=== PATIENT | male | born 1985 | race Caucasian/White ===

== ENCOUNTER 2017-12-20 17:15 | Observation (INO) ==
[~2017-12-20 17:15] MED LIST: Aminoglycoside Consult 1 EACH MC ONE
[2017-12-20] MEDS ORDERED: Isovue-370 500 ML INFUS..BTL IV ONE (18:53)
[2017-12-20] MEDS ORDERED: Piperacillin/Tazobactam 3.375 GM in 0.9 % Sodium Chloride Mini Bag 100 ML IVPB ONE (19:16)
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
[2017-12-20 19:38] LABS: Basophils % 0.3 %; Eosinophils # 0.3 K/mcL (0.0-0.6); Hematocrit 41.2 % (37.5-50.1); Hemoglobin 13.3 g/dL (12.9-16.9); Immature Granulocytes % 0.7 % (0-4); Lymphocytes # 1.7 K/mcL (0.6-4.6); Mean Corpuscular HGB Conc 32.3 g/dL (31.6-35.5); Mean Corpuscular Volume 86.7 fL (83.0-100.0); Mean Platelet Volume 10.8 fL (9.4-12.4); Monocytes # 0.6 K/mcL (0.0-1.3); Monocytes % 6.8 %; Neutrophils # 6.2 K/mcL (1.6-8.9); Platelet Count 257 K/mcL (140-400); Red Blood Count 4.75 M/mcL (4.19-5.50); Red Cell Distribution Width 13.9 % (11.5-14.5); Segmented Neutrophils % 70.2 %
[2017-12-20 19:44] LABS: BUN/Creatinine Ratio 15 (6-26); Blood Urea Nitrogen 8 mg/dL (6-20); Calcium 9.6 mg/dL (8.6-10.3); Carbon Dioxide 27 mEq/L (23-29); Chloride 105 mEq/L (98-107); Glucose 98 mg/dL (70-105); Osmolality,Calculated 288 (280-300); Potassium 3.9 mEq/L (3.5-5.1); Sodium 140 mEq/L (136-145); eGFR For African Americans > 60 (> 60); eGFR For Non-African Americans > 60 (> 60)
--- NOTE | 2017-12-20 20:20 | Emergency Department Note ---
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 Pt stated he hit his left hand on a metal door knob one week ago. The wound was healing with scab well until two days ago. He found a lot of white-yellowish drainage from the wound. He also felt mild increasing pain. No chills and fever. No history of diabetes. Pt has history of paraplegia from neck down with decreasing sensory of hands. history of right hand deformity. Onset (ago): week(s) (1) Location: right, upper extremity Pain Scale: 4 Consistency: constant, Worsening Improves with: nothing - Related Data Home Medications Medication Instructions Recorded Confirmed Ascorbic Acid [Vitamin C] 500 mg PO DAILY 12/20/17 12/20/17 Baclofen [Lioresal] 25 mg PO TID 12/20/17 12/20/17 Gabapentin [Neurontin] 600 mg PO TID 12/20/17 12/20/17 Mv-Mn/FA/Lycopene/Lut/Hb#178 [Damien 1 tab PO DAILY 12/20/17 12/20/17 Multivit For Men Caplet] Allergies Allergy/AdvReac Type Severity Reaction Status Date / Time sulfamethoxazole AdvReac Rash Verified 12/20/17 21:28 [From Bactrim] trimethoprim [From Bactrim] AdvReac Rash Verified 12/20/17 21:28 Constitutional: Denies: fever, chills, weakness, weight change Eyes: Denies: eye pain, eye discharge, vision change ENT ED: Denies: ear pain, throat pain, dental pain, hearing loss, epistaxis, congestion, dysphagia Cardiovascular: Denies: chest pain, palpitations, dyspnea on exertion, edema, syncope Respiratory: Denies: cough, dyspnea, wheezes, hemoptysis, stridor Gastrointestinal: Denies: abdominal pain, nausea, vomiting, diarrhea, constipation, hematemesis, melena, hematochezia Genitourinary: Denies: urgency, dysuria, frequency, hematuria Musculoskeletal: Denies: back pain, neck pain, arthralgia, myalgia Integumentary: Reports: lesions (open wound in right hand). Denies: rash, abrasion Neurological: Denies: headache, weakness, numbness, paresthesias, confusion, abnormal gait, vertigo Psychiatric: Denies: anxiety, depression, suicidal thoughts, homicidal thoughts , auditory hallucinations, visual hallucinations Endocrine: Denies: fatigue Hematological/Lymphatic: Denies: easy bleeding, easy bruising Allergic/Immunologic: Denies: facial swelling, urticaria Past Medical History - Past Medical History Medical history: Reports: other Surgical history: Reports: other Psychiatric history: Reports: no psych history - Social History Smoking Status: Never smoker Smokeless Tobacco Status: No Alcohol use: Reports: occasionally Drug use: Reports: none Physical Exam - General Limitations: no limitations General appearance: alert, in no apparent distress - Head Head exam: atraumatic, normocephalic, normal inspection - Eye Eye exam: Present: normal appearance, PERRL, EOMI - ENT ENT exam: normal exam, normal oropharynx, mucous membranes moist - Neck Neck exam: Present: normal inspection, full ROM, trachea midline - Chest Chest inspection: Present: normal inspection, symmetric chest wall rise. Absent : tenderness - Respiratory Respiratory exam: Present: normal lung sounds bilaterally. Absent: respiratory distress, wheezes - Cardiovascular Cardiovascular exam: Present: regular rate, normal rhythm, normal heart sounds - Abdominal Exam Abdominal exam: Present: soft, Non-Tender. Absent: tenderness, distention, guarding, rebound, rigidity - Extremities Exam Extremities exam: Present: normal inspection (baseline appearance of extremities except a open wound in right hand, see hand exam), full ROM. Absent : tenderness, pedal edema - Expanded Upper Extremity Exam Hand exam: Present: tenderness. Absent: normal inspection (a 2x2 cm open wound on dorsal side metacarpalphalangeal joint, yellowish drainage noted, a small piece of bone visiable, surrounding area erythema, swelling and mild tender to palpation. Diminished sensary on right hand (baseline).), full ROM - Back Exam Back exam: Present: normal inspection, full ROM. Absent: tenderness - Neurological Exam Neurological exam: Present: alert, oriented X3 - Psychiatric Psychiatric exam: Present: normal affect, normal mood - Skin Skin exam: Present: warm, dry, normal color. Absent: intact Course Vital Signs Temperature 98.3 F 12/20/17 17:18 Pulse Rate 77 12/20/17 17:18 Respiratory Rate 16 12/20/17 17:18 Blood Pressure 104/63 12/20/17 17:18 O2 Sat by Pulse Oximetry 96 12/20/17 17:18 Temperature 97.8 F 12/20/17 23:00 Pulse Rate 65 12/20/17 23:00 Respiratory Rate 18 12/20/17 23:00 Blood Pressure 145/78 12/20/17 23:00 O2 Sat by Pulse Oximetry 97 12/20/17 21:09 Oxygen Delivery Oxygen Delivery Room Air Medical Decision Making - MDM Narrative Medical decision making narrative: 32 year old male presents with infected open wound on right hand. a piece of hand bone visible from the wound. labs with normal white cell, xray and hand ct has no osteomylitis. Considering the infected deep wound, IV antibiotics were in ER. Orthopedics consulted. Dr. Almonte will see the patient in the floor tomorrow morning. Pt will be admitted to hospital for IV antibiotics and Ortho consult. - Lab Data Lab results reviewed: Yes I reviewed the patient's lab results. Result diagrams: 12/20/17 19:03 12/20/17 19:03 Lab Results 12/20/17 12/20/17 12/20/17 Range/Units 19:03 19:03 19:52 WBC 8.8 (4.3-11.1) K/mcL RBC 4.75 (4.19-5.50) M/mcL Hgb 13.3 (12.9-16.9) g/dL Hct 41.2 (37.5-50.1) % MCV 86.7 (83.0-100.0) fL MCH 28.0 (28.0-33.3) pg MCHC 32.3 (31.6-35.5) g/dL RDW 13.9 (11.5-14.5) % Plt Count 257 (140-400) K/mcL MPV 10.8 (9.4-12.4) fL Immature Gran % 0.7 (0-4) % Seg Neutrophils % 70.2 % Lymphocytes % 19.0 % Monocytes % 6.8 % Eosinophils % 3.0 % Basophils % 0.3 % Neutrophils # 6.2 (1.6-8.9) K/mcL Lymphocytes # 1.7 (0.6-4.6) K/mcL Monocytes # 0.6 (0.0-1.3) K/mcL Eosinophils # 0.3 (0.0-0.6) K/mcL Basophils # 0.0 (0.0-0.2) K/mcL Sodium 140 (136-145) mEq/L Potassium 3.9 (3.5-5.1) mEq/L Chloride 105 (98-107) mEq/L Carbon Dioxide 27 (23-29) mEq/L BUN 8 (6-20) mg/dL Creatinine 0.53 L (0.70-1.30) mg/dL Est GFR ( Amer) > 60 (> 60) Est GFR (Non-Af Amer) > 60 (> 60) BUN/Creatinine Ratio 15 (6-26) Glucose 98 (70-105) mg/dL Calculated Osmolality 288 (280-300) Lactic Acid 0.7 (0.5-2.2) mmol/L Calcium 9.6 (8.6-10.3) mg/dL - Radiology Data Radiology results reviewed: Yes I reviewed the patient's radiology results.
[2017-12-20] MEDS ORDERED: 0.9 % Sodium Chloride 1,000 ML IVC ONE (23:53)
[2017-12-21] MEDS: Gabapentin 300 MG CAPSULE PO SCH ×3 (00:33→14:21)
[2017-12-21] MEDS: Baclofen 10 MG TABLET PO SCH ×3 (00:33→14:21)
[2017-12-21] MEDS: *HR* Promethazine 25 MG/ML VIAL IVP PRN ×2 (00:34→14:21)
[2017-12-21] MEDS ORDERED: Naloxone 0.4 MG/ML INJ IVP PRN (01:02)
[2017-12-21] MEDS ORDERED: OXYCODONE Oral CONC 10 MG/0.5 ML ORAL.SYG SL PRN (01:02)
--- NOTE | 2017-12-21 01:12 | Internal Med History&Physical ---
Date of Encounter: 12/21/17 Time of Encounter: 23:00 Internal Medicine - H&P: HPI Chief complaint: Cellulitis, right hand with open wound Admitted From: Home Plans for Post Hospital Care: Home History of present illness: Mr. Brown is a 32 year old male Patient states that a few weeks ago he was going down a wheelchair ramp when he could not, and he ran into a door frame with his right hand which resulted in a puncture wound. He did not seek medical attention at that time but tried to take care of himself at home. Over the last few weeks it has been increasing in redness and pain, and he noted some discharge coming out of it after the scab fell off during a shower. He is also noticed a foul odor. Of note, patient has a history of spinal cord injury over 10 years ago resulting in quadriplegia. He uses a wheelchair for transportation, and has no sensation in his lower extremities but some sensation in his right and left hand. He has felt chills but denies fever, he has noticed increased pain as stated previously , and has some nausea but no vomiting. Denies chest pain abdominal pain. In the emergency room and CT showed large open wound along the dorsal soft tissues a second metacarpal joint but no drainable fluid collection. The hand x -ray showed on unified fracture of the third distal phalanx and chronic deformities of the distal radius and ulna. The emergency room started him on vancomycin and Zosyn, and contacted orthopedic surgery to see the patient in the morning. Past Med Surg Social Fam HX - Past Medical History Medical history: other Additional medical history: Spinla cord injury 2004 Psychiatric history: no psych history - Past Surgical History Surgical History: other Additional surgical history: spinal fusion c5-c6; hip flap - Social History Smoking Status: Never smoker Smokeless Tobacco Status: No Alcohol use: occasionally Drug use: none - Family History Mother Living Status: Still Living Hx Family Cancer: Yes (breast) Father Living Status: Hx Family Cardiac Disorders: Yes (HTN) Hx Family Neurologic Disorders: Yes (stroke) Internal Medicine - H&P: Meds Ascorbic Acid [Vitamin C] 500 mg PO DAILY 12/20/17 [History] Baclofen [Lioresal] 25 mg PO TID 12/20/17 [History] Gabapentin [Neurontin] 600 mg PO TID 12/20/17 [History] Mv-Mn/FA/Lycopene/Lut/Hb#178 [Damien Multivit For Men Caplet] 1 tab PO DAILY 12/20 [History] 3 Allergy/AdvReac Type Severity Reaction Status Date / Time sulfamethoxazole AdvReac Rash Verified 12/20/17 21:28 [From Bactrim] trimethoprim [From Bactrim] AdvReac Rash Verified 12/20/17 21:28 All Systems PM: A 10-system review of systems was performed and is negative for pertinent findings except as documented above in the HPI. - Constitutional Vitals: Temp Pulse Resp BP Pulse Ox 97.8 F 65 18 145/78 97 12/20/17 23:00 12/20/17 23:00 12/20/17 23:00 12/20/17 23:00 12/20/17 21:09 General appearance: Present: mild distress, A&O X 3, pleasant - Head Head exam: Present: normal inspection - Eye Eye exam: Present: EOMI, normal appearance - Respiratory Respiratory exam: Present: CTAB. Absent: respiratory distress, rhonchi, wheezes - Cardiovascular Cardiovascular exam: Present: RRR. Absent: diastolic murmur, systolic murmur - GI/Abdominal GI/Abdominal exam: Present: normal bowel sounds. Absent: guarding, tenderness - Extremities Exam Additional comments: Patient is quadriplegic, some sensation of upper extremity. Right hand has large wound with exposed bone over the 2nd digit at MC joint with surrounding erythema. Tender to palpation. Yellow discharge present. - Neurological Exam Neurological exam: Present: motor sensory deficit, oriented X3. Absent: strengths equal and symetr throughout, facial droop, speech deficit Additional comments: Patient is quadriplegic - Skin Skin exam: Present: dry, normal color, warm Additional comments: Please see description of right hand in extremities section. Internal Med - H&P Results - Labs CBC & Chem 7: 12/20/17 19:03 12/20/17 19:03 - Assessment and plan (1) Open wound of right hand Current Visit: Yes Status: Acute Assessment and plan: Secondary to injury with door-frame. Orthopedic surgery will see the patient in the morning. Continue vancomycin and Zosyn. Qualifiers: Qualified Code(s): S61.401A - Unspecified open wound of right hand, initial encounter (2) Hand ulceration Current Visit: Yes Status: Acute Assessment and plan: As evidenced by imaging and physical exam, patient had significant injury after running into a door frame. There is evidence of bone fracture and soft tissue injury. Follow-up orthopedic surgery consult Nothing by mouth overnight Continue vancomycin and Zosyn Follow-up blood cultures. Qualifiers: Non-pressure ulcer stage: unspecified non-pressure ulcer stage Qualified Code(s): L98.499 - Non-pressure chronic ulcer of skin of other sites with unspecified severity (3) Nausea Current Visit: Yes Status: Acute Assessment and plan: Patient states he has nausea because he has not had his home dose of baclofen which helps prevent stomach spasms. Home meds given prior to midnight Continue home meds after surgery evaluation. Patient nothing by mouth after midnight. - Time Spent With Patient Total time spent is greater than 50% in coordination of care (as documented) at patient's floor/unit and/or counseling patient: Greater than 35 minutes
[2017-12-21 06:21] LABS: Bilirubin,Urine Negative (Negative); Blood,Urine Small (Negative); Clarity,Urine Cloudy (Clear); Color,Urine Yellow (Yellow); Glucose,Urine (UA) Normal (Normal); Ketones,Urine 15 mg/dL (Negative); Leukocyte Esterase,Urine Large (Negative); Nitrite,Urine Positive (Negative); Protein,Urine 30 mg/dL (Neg-Trace); Specific Gravity,Urine > 1.030 (1.010-1.025); Urobilinogen,Urine Normal (Normal)
[2017-12-21 06:24] LABS: Hyaline Casts,Urine Moderate per lpf (None-Few); Squamous Epithelial Cell,Urine None Seen per lpf (None-Few); WBC,Urine TNTC per hpf (0-3)
[2017-12-21 06:33] LABS: Bacteria,Urine Few per hpf (None-Few); Mucus,Urine Few (Few)
[2017-12-21 07:11] LABS: Hematocrit 38.6 % (37.5-50.1); Hemoglobin 12.6 g/dL (12.9-16.9); Mean Corpuscular HGB Conc 32.6 g/dL (31.6-35.5); Mean Corpuscular Hemoglobin 28.1 pg (28.0-33.3); Mean Platelet Volume 10.8 fL (9.4-12.4); Platelet Count 234 K/mcL (140-400); Red Blood Count 4.49 M/mcL (4.19-5.50); Red Cell Distribution Width 13.9 % (11.5-14.5)
[2017-12-21 07:33] LABS: BUN/Creatinine Ratio 12 (6-26); Blood Urea Nitrogen 6 mg/dL (6-20); Calcium 8.9 mg/dL (8.6-10.3); Carbon Dioxide 26 mEq/L (23-29); Chloride 108 mEq/L (98-107); Glucose 86 mg/dL (70-105); Osmolality,Calculated 289 (280-300); Potassium 3.7 mEq/L (3.5-5.1); Sodium 141 mEq/L (136-145); eGFR For African Americans > 60 (> 60); eGFR For Non-African Americans > 60 (> 60)
--- NOTE | 2017-12-21 07:36 | Orthopedic Consult Note ---
Date of Encounter: 12/21/17 Time of Encounter: 07:33 Assessment and Plan (1) Hand ulceration Current Visit: Yes Status: Acute At this point the patient does have a wound ulcer from a prior injury with likely colonization possible infection. My recommendation is for antibiotics per the primary team and local wound care. There does not appear to be any drainable abscess. Wound care recommendations at this point is daily wet-to- dry dressing changes. Motion exercises to reduce the risk of stiffness. I suspect that this will heal through secondary intention I did indicate the possible need for skin grafting. I will follow him with you clinically. Qualifiers: Non-pressure ulcer stage: unspecified non-pressure ulcer stage Qualified Code(s): L98.499 - Non-pressure chronic ulcer of skin of other sites with unspecified severity History of Present Illness HPI: Mr. Brown is a 32 year old male. He has a history of a spinal cord injury back in 2003 leaving him reliant on a wheelchair for mobilization as well as significant upper extremity deficits. He was going down a ramp about 3 weeks ago when he sustained an injury to his right hand, particularly along the dorsal index metacarpophalangeal joint region where he sustained a puncture wound. He said that this eventually became infected and after playing office He noted drainage and presented to the emergency department. He is admitted to the hospitalist and I was asked to evaluate the patient for definitive management of the right hand. Pain is only mild localized along the dorsal index metacarpophalangeal joint region. No feelings of illness. No new numbness, tingling, or any other associated signs or symptoms. No modifying factors. Past Med Surg Social Fam HX - Past Medical History Medical history: other Additional medical history: Spinla cord injury 2003 Psychiatric history: no psych history - Past Surgical History Surgical History: other Additional surgical history: spinal fusion c5-c6; hip flap - Social History Smoking Status: Never smoker Smokeless Tobacco Status: No Alcohol use: occasionally Drug use: none - Family History Mother Living Status: Still Living Hx Family Cancer: Yes (breast) Father Living Status: Hx Family Cardiac Disorders: Yes (HTN) Hx Family Neurologic Disorders: Yes (stroke) Medications and Allergies Ascorbic Acid [Vitamin C] 500 mg PO DAILY 12/20/17 [History] Baclofen [Lioresal] 25 mg PO TID 12/20/17 [History] Gabapentin [Neurontin] 600 mg PO TID 12/20/17 [History] Mv-Mn/FA/Lycopene/Lut/Hb#178 [Damien Multivit For Men Caplet] 1 tab PO DAILY 12/20 [History] 3 Allergy/AdvReac Type Severity Reaction Status Date / Time sulfamethoxazole AdvReac Rash Verified 12/20/17 21:28 [From Bactrim] trimethoprim [From Bactrim] AdvReac Rash Verified 12/20/17 21:28 All Systems Reviewed: Constitutional and musculoskeletal systems were reviewed and are negative unless otherwise stated in history of present illness. Physical Exam - Constitutional Vitals: Temp Pulse Resp BP Pulse Ox 97.8 F 65 18 145/78 97 12/20/17 23:00 12/20/17 23:00 12/20/17 23:00 12/20/17 23:00 12/20/17 21:09 CONSTITUTIONAL -Vitals reviewed -The patient is well developed, well nourished, well groomed PSYCHIATRIC -Fully alert and oriented -Pleasant mood RIGHT UPPER EXTREMITY Inspection of the hand shows moderate spasticity from a prior spinal cord injury with wrist and digital flexion. There is a quarter-sized ulceration over the dorsal and radial area of the index metacarpophalangeal joint which is full-thickness in nature and mild surrounding erythema. No significant drainage. At the base of the ulcer I do see a small part of the extensor tendon which appears to be covered with peritenon. I can gently passively range the metacarpophalangeal joint without significant pain. He grossly flexes and extends the digits with limitations due to the spinal cord injury as well as spasticity. Of incidental note he does have a long finger constriction band around the distal phalangeal region. He does have an absent small finger through the midportion with areas of contusion but no appearance of infection. The fingertips are well perfused. Diagnostic Imaging: I did personally review and interpret the CT scan of the right hand which demonstrates the soft tissue ulceration however no signs of osteomyelitis. Results - Labs Result Diagrams: 12/21/17 07:00 12/20/17 19:03 Labs: Abnormal lab results Hgb 12.6 g/dL (12.9-16.9) L 12/21/17 07:00 Creatinine 0.53 mg/dL (0.70-1.30) L 12/20/17 19:03 Ur Specimen Adequacy See below A 12/21/17 06:10 Urine Clarity Cloudy (Clear) A 12/21/17 06:10 Ur Specific [place] > 1.030 (1.010-1.025) H 12/21/17 06:10 Urine Protein 30 mg/dL (Neg-Trace) H 12/21/17 06:10 Urine Ketones 15 mg/dL (Negative) H 12/21/17 06:10 Urine Blood Small (Negative) H 12/21/17 06:10 Urine Nitrite Positive (Negative) A 12/21/17 06:10 Ur Leukocyte Esterase Large (Negative) H 12/21/17 06:10 Urine Microscopic RBC 3-5 per hpf (0-3) H 12/21/17 06:10 Urine Microscopic WBC TNTC per hpf (0-3) H 12/21/17 06:10 Hyaline Casts Moderate per lpf (None-Few) H 12/21/17 06:10 Ur Culture Indicated? YES (NO) A 12/21/17 06:10 H & H 12/21/17 Range/Units 07:00 Hgb 12.6 L (12.9-16.9) g/dL Hct 38.6 (37.5-50.1) % All other labs normal. Consult Discharge Plan - Plan Referrals: Zahida Mccall, [employer] [Primary Care Provider] -
[2017-12-21] MEDS ORDERED: Piperacillin/Tazobactam 3.375 GM in 0.9 % Sodium Chloride Mini Bag 100 ML IVPB SCH (08:00)
--- NOTE | 2017-12-21 09:45 | Discharge Summary ---
- NOTES TO OUTPATIENT PROVIDER Notes to Outpatient Provider: admitted to R hand puncture wound, no debridement done. Will follow up with ortho as an outpatient. Discharged with augmentin and levaquin for MRSA + pseudomonal coverage Orders not resulted at time of discharge: Pending orders 12/21/17 06:10 Culture,Urine [RM] Routine Date of Encounter: 12/21/17 Time of Encounter: 08:40 - Discharge Diagnosis (1) Hand ulceration Priority: Secondary Status: Acute Qualifiers: Non-pressure ulcer stage: unspecified non-pressure ulcer stage Qualified Code(s): L98.499 - Non-pressure chronic ulcer of skin of other sites with unspecified severity (2) Open wound of right hand Priority: Primary Status: Acute Qualifiers: Qualified Code(s): S61.401A - Unspecified open wound of right hand, initial encounter Hospital course: Mr. 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 He ran into a door frame while maneuvering his wheelchair and got his R hand caught between the wheelchair and door frame a few weeks prior to the presentation.. He did not seek medical attention at that time but tried to take care of himself at home but had worsening redness and discharge. CT did not show any evidence of OM and orthopedic surgery evaluated the pt and deemed that he does not need any surgical intervention. He was given IV vanc/zosyn inpatient which was converted to augmentin/levaquin for MRSA/pseudomonal coverage. He is discharged in stable condition with a follow up appt with orthopedics early next week. Discharge discussed with: patient - Time Spent with Patient Total time spent providing and/or coordinating discharge services: Greater than 30 minutes - Discharge Medications Prescriptions: Amoxicillin/Clavulanate [Augmentin] 875 mg PO BIDWM 6 Days #12 tablet levoFLOXacin [Levaquin] 500 mg PO DAILY 6 Days #6 tablet Home Medications: Ascorbic Acid [Vitamin C] 500 mg PO DAILY 12/20/17 [History] Baclofen [Lioresal] 25 mg PO TID 12/20/17 [History] Gabapentin [Neurontin] 600 mg PO TID 12/20/17 [History] Mv-Mn/FA/Lycopene/Lut/Hb#178 [Damien Multivit For Men Caplet] 1 tab PO DAILY 12/20 [History] Amoxicillin/Clavulanate [Augmentin] 875 mg PO BIDWM 6 Days #12 tablet 12/21/17 [ Rx] levoFLOXacin [Levaquin] 500 mg PO DAILY 6 Days #6 tablet 12/21/17 [Rx] Allergies/Adverse Reactions: 3 Allergy/AdvReac Type Severity Reaction Status Date / Time sulfamethoxazole AdvReac Rash Verified 12/20/17 21:28 [From Bactrim] trimethoprim [From Bactrim] AdvReac Rash Verified 12/20/17 21:28 Date of admission: 12/20/17 22:15 Primary care physician: Zahida Mccall CNP - Constitutional Vitals: Temp Pulse Resp BP Pulse Ox 98.1 F 82 14 117/75 95 12/21/17 07:57 12/21/17 07:57 12/21/17 07:57 12/21/17 07:57 12/21/17 07:57 General appearance: Present: mild distress, A&O X 3, pleasant Exam: General: Alert and oriented HEENT:EOM, pupils equal, round, and reactive. Cardiovascular:Normal S1 & S2, no murmurs or gallops. No JVD. Pulse regular. Lungs:Normal breath sounds, no wheezes or crackles. Abdomen:Soft, non-tender, no rigidity. Extremities:Right hand has large wound with surrounding erythema. Tender to palpation. Neurological:Normal cognition and motor skills. Skin:Normal color, no rash, no lesions. Pulses:Carotid and radial pulses normal +2. Rest of the physical exam is non-contributory - Patient Status Disposition: Home, Self-Care Condition: Fair Overall status at discharge: patient is progressing back to baseline - Discharge Instructions Follow Up With: Zahida Mccall CNP [Primary Care Provider] - Lawrence Almonte MD [Partnered Physician] - Additional Instructions: Follow up with orthopedics in 1 week - Diet and Activity Activity: resume usual activities as tolerated Diet: regular diet
--- NOTE | 2017-12-21 12:15 | Physician Discharge Referral ---
- Diagnosis (1) Hand ulceration Status: Acute (2) Open wound of right hand Status: Acute - Respiratory Orders Smoking Cessation: Smoking cessation has been advised. For more information, call the [place] Tobacco Quit Line at 7-569-WMWK-NOW. - Services Needed Following services are medically necessary services: Nursing, Home Health Aide - Transfer Medications Prescriptions: Amoxicillin/Clavulanate [Augmentin] 875 mg PO BIDWM 6 Days #12 tablet levoFLOXacin [Levaquin] 500 mg PO DAILY 6 Days #6 tablet Home Medications: Ascorbic Acid [Vitamin C] 500 mg PO DAILY 12/20/17 [History] Baclofen [Lioresal] 25 mg PO TID 12/20/17 [History] Gabapentin [Neurontin] 600 mg PO TID 12/20/17 [History] Mv-Mn/FA/Lycopene/Lut/Hb#178 [Damien Multivit For Men Caplet] 1 tab PO DAILY 12/20 [History] Amoxicillin/Clavulanate [Augmentin] 875 mg PO BIDWM 6 Days #12 tablet 12/21/17 [ Rx] levoFLOXacin [Levaquin] 500 mg PO DAILY 6 Days #6 tablet 12/21/17 [Rx] Allergies/Adverse Reactions: 3 Allergy/AdvReac Type Severity Reaction Status Date / Time sulfamethoxazole AdvReac Rash Verified 12/20/17 21:28 [From Bactrim] trimethoprim [From Bactrim] AdvReac Rash Verified 12/20/17 21:28 Certification: Further, I certify that my clinical findings support that this patient is homebound (i.e. absences from home require considerable and taxing effort and are for medical reasons or advent services or infrequently or short duration when for other reasons) because: Homebound Reason: Patient requires assistance of a person or device to safely leave home Attestation: My signature below is to certify that this patient is under my care and that I, or nurse practitioner, or a physician's patient care assistant working with me, has a face-to -face encounter with this patient.
[2017-12-21 14:18] VITALS: BP 117/74
== END 2017-12-21 16:46 | disposition home or self-care (01) ==
LOC: EMEROO 17:15 → 3ANU 17:15 → SUATTDRO 22:15 → 3ANU 22:28
PROVIDERS: ADMIT Pediatrics; ATTEND Internal Medicine

== ENCOUNTER 2018-01-03 11:18 | Inpatient (IN) ==
[2018-01-03] MEDS ORDERED: *HR* FentaNYL (PF) 100 MCG/2 ML VIAL IVP ONE ×3 (11:23→16:54)
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
[2018-01-03] MEDS ORDERED: *HR* FentaNYL (PF) 100 MCG/2 ML VIAL ONE (12:44)
[2018-01-03] MEDS ORDERED: Naloxone 0.4 MG/ML INJ IVP PRN (13:29)
[2018-01-03] MEDS ORDERED: *HR* OxyCODONE/APAP 7.5/325 TABLET PO PRN (13:39)
--- NOTE | 2018-01-03 13:39 | Orthopedic Consult Note ---
Date of Encounter: 01/04/18 Time of Encounter: 13:00 Assessment and Plan (1) Femur fracture, right Current Visit: Yes Status: Acute right midshaft femur fracture - Due to patient's paraplegia it was discussed with him the option of surgical fixation versus conservative treatment in long leg cast for at least 6 weeks. Discussed the procedure as well as r/b/a of each option. Patient ultimately chose to proceed with surgery. He is scheduled for right femur intramedullary nailing tomorrow by Dr. Leal. All questions answered and consent obtained, copy placed in chart and given to internet programmer. Continue in traction until surgery. Continue NWB. Apply ice and elevate as needed. Pain control per hospitalist. Ok for clears for breakfast in the am but then NPO after that. Qualifiers: Encounter type: initial encounter Femur location: shaft Fracture type: closed Fracture morphology: other fracture Qualified Code(s): S72.391A - Other fracture of shaft of right femur, initial encounter for closed fracture History of Present Illness Chief complaint: right leg pain HPI: Mr. Brown is a 32 year old male with history of paraplegia (since 2003) who presented to the ER with left leg pain/deformity. He was doing home therapy when the therapist crossed his right ankle overtop left knee for stretch patient heard a snap and sudden obvious deformity and pain to right thigh. He does have some sensation to lower extremity and can feel pain although well controlled right now with medication. He states EMS was able to apply traction to the leg and his pain improved after that and they were able to obtain better perfusion to the distal extremity. He denies pain anywhere else. He is typically wheelchair bound but recently obtained a standing walker which he has been trying to use for the past couple months and he would like to get back to using this as soon as possible. Past Med Surg Social Fam HX - Past Medical History Medical history: other Additional medical history: Spinla cord injury 2004 Psychiatric history: no psych history - Past Surgical History Surgical History: other Additional surgical history: spinal fusion c5-c6; hip flap - Social History Smoking Status: Never smoker Smokeless Tobacco Status: No Alcohol use: occasionally Drug use: none - Family History Mother Living Status: Still Living Hx Family Cancer: Yes (breast) Father Living Status: Hx Family Cardiac Disorders: Yes (HTN) Hx Family Neurologic Disorders: Yes (stroke) Medications and Allergies Ascorbic Acid [Vitamin C] 500 mg PO DAILY 12/20/17 [History] Baclofen [Lioresal] 25 mg PO TID 12/20/17 [History] Gabapentin [Neurontin] 600 mg PO TID 12/20/17 [History] Mv-Mn/FA/Lycopene/Lut/Hb#178 [Damien Multivit For Men Caplet] 1 tab PO DAILY 12/20 [History] 3 Allergy/AdvReac Type Severity Reaction Status Date / Time sulfamethoxazole AdvReac Rash Verified 12/20/17 21:28 [From Bactrim] trimethoprim [From Bactrim] AdvReac Rash Verified 12/20/17 21:28 All Systems Reviewed: The remainder of the systems were reviewed and are negative - Constitutional Constitutional: as per HPI - Musculoskeletal Musculoskeletal: as per HPI Physical Exam - Constitutional Vitals: Temp Pulse Resp BP Pulse Ox 98.1 F 78 16 138/98 97 01/03/18 11:23 01/03/18 11:23 01/03/18 11:23 01/03/18 11:23 01/03/18 11:23 - Knee right Appearance: other (traction in place to right lower extremity, mild swelling noted to mid thigh, compartments soft. ROM restricted secondary to paraplegia, brisk cap refill. distal pedal pulse noted) Results - Labs Result Diagrams: 01/04/18 01:18 01/04/18 01:18 Labs: All other labs normal. - Diagnostic results Knee x-ray: report reviewed, image reviewed Consult Discharge Plan - Plan Referrals: Zahida Mccall FARM MECHANIC APPRENTICE [Primary Care Provider] - - Attending Attestation Case and plan of care discussed with supervising physician who was available for all aspects of care.
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
[2018-01-03] MEDS: Gabapentin 300 MG CAPSULE PO SCH ×2 (14:13→20:42)
[2018-01-03] MEDS: Baclofen 10 MG TABLET PO SCH ×2 (14:40→20:42)
[2018-01-03] MEDS: *HR* OxyCODONE/APAP 7.5/325 TABLET PO PRN ×2 (18:32→23:33)
[2018-01-03] MEDS ORDERED: Ondansetron 4 MG/2 ML VIAL IVP PRN (20:38)
[2018-01-03] MEDS: Ketorolac 30 MG/ML VIAL IVP PRN (21:16)
[2018-01-04 01:50] LABS: Basophils % 0.2 %; Eosinophils # 0.2 K/mcL (0.0-0.6); Eosinophils % 1.8 %; Hematocrit 39.3 % (37.5-50.1); Immature Granulocytes % 0.4 % (0-4); Lymphocytes # 1.4 K/mcL (0.6-4.6); Lymphocytes % 12.9 %; Mean Corpuscular HGB Conc 33.1 g/dL (31.6-35.5); Mean Corpuscular Hemoglobin 28.4 pg (28.0-33.3); Mean Corpuscular Volume 85.8 fL (83.0-100.0); Mean Platelet Volume 11.1 fL (9.4-12.4); Monocytes # 0.7 K/mcL (0.0-1.3); Neutrophils # 8.2 K/mcL (1.6-8.9); Platelet Count 210 K/mcL (140-400); Red Blood Count 4.58 M/mcL (4.19-5.50); Red Cell Distribution Width 14.2 % (11.5-14.5); Segmented Neutrophils % 77.7 %
[2018-01-04 02:04] LABS: BUN/Creatinine Ratio 16 (6-26); Blood Urea Nitrogen 11 mg/dL (6-20); Calcium 9.3 mg/dL (8.6-10.3); Carbon Dioxide 28 mEq/L (23-29); Chloride 103 mEq/L (98-107); Chol/HDL Ratio 3.8 (0-4.9); Cholesterol 121 mg/dL (< 200); Glucose 135 mg/dL (70-105); HDL Cholesterol 32 mg/dL (40-59); LDL Cholesterol,Calculated 72 mg/dL (0-99); Osmolality,Calculated 285 (280-300); Potassium 4.1 mEq/L (3.5-5.1); Sodium 137 mEq/L (136-145); Triglycerides 84 mg/dL (< 150); eGFR For Non-African Americans > 60 (> 60)
[2018-01-04] MEDS: *HR* OxyCODONE/APAP 7.5/325 TABLET PO PRN ×4 (04:23→23:39)
[2018-01-04] MEDS: Gabapentin 300 MG CAPSULE PO SCH ×3 (08:24→21:33)
[2018-01-04] MEDS: Baclofen 10 MG TABLET PO SCH ×3 (08:24→21:32)
[2018-01-04] MEDS ORDERED: Ascorbic Acid 500 MG TABLET PO SCH (09:00)
[2018-01-04] MEDS ORDERED: Multivit/Ca/Min/Fe/FA 1 TAB TABLET PO SCH (09:00)
[2018-01-04] MEDS: Ketorolac 30 MG/ML VIAL IVP PRN (12:29)
--- NOTE | 2018-01-04 13:17 | Anesthesia Evaluation PreOp ---
Date of Encounter: 01/04/18 Time of Encounter: 13:15 - Past History Planned Operation: IM Nailing Hip Right Cardiac History: Denies any Significant Hx Pulmonary History: Denies Any Significant HX CATHODE BUILDER History: Other (Quadraphlegic C5-6 Fusion) Other Medical History: Denies Any Significant HX Anesthesia History: No Prior Anesthetic Complications Alcohol Use: occasionally Drug use: none Medications and Allergies Ascorbic Acid [Vitamin C] 500 mg PO DAILY 12/20/17 [History] Baclofen [Lioresal] 25 mg PO TID 12/20/17 [History] Gabapentin [Neurontin] 600 mg PO TID 12/20/17 [History] Mv-Mn/FA/Lycopene/Lut/Hb#178 [Damien Multivit For Men Caplet] 1 tab PO DAILY 12/20 [History] 3 Allergy/AdvReac Type Severity Reaction Status Date / Time sulfamethoxazole AdvReac Rash Verified 12/20/17 21:28 [From Bactrim] trimethoprim [From Bactrim] AdvReac Rash Verified 12/20/17 21:28 - Meds/Allergy Pre-op Review Medications Reviewed: Yes Allergies Reviewed: Yes Beta Blockers on Current Med List: No Anesthesia Results - Labs 01/04/18 01:18 01/04/18 01:18 Laboratory Tests 01/04/18 01/04/18 01:18 01:18 Hgb 13.0 Hct 39.3 Plt Count 210 Sodium 137 Potassium 4.1 BUN 11 Creatinine 0.68 L Anesthesia Exam Vital Signs/O2 Sat/Glucose, Most Current Temp Pulse Resp BP Pulse Ox 01/04/18 12:21 98.2 F 88 17 109/66 92 Height: 6'4 Weight: 230 lbs NPO (# of Hours): MN Pain Scale: 0 - HEENT Pupil (Motor): Pupils equal, EOMI Mallampati: II Teeth: Normal Oral Opening: Greater than 3 - CATHODE BUILDER LOC: Oriented CATHODE BUILDER Motor: Normal Face, Deficit RUE (Quadraphlegia), Deficit LUE, Deficit RLE, Deficit LLE CATHODE BUILDER Sensory: Normal: Face, Deficit: RUE, LUE, RLE, LLE - Cardiac Rhythm: Regular Murmur: None JVD: No Carotid Bruit: No - Pulmonary Breath Sounds: bilateral Clear Respiratory Effort: Symmetrical Anesthesia Assess/Plan ASA Score: 3 (Quadraphlegic) Modified Vasquez Scale for Level of Consciousness: Cooperative, oriented, and tranquil Anesthetic Plan: General Monitoring Plan: Standard Monitors Recovery Plan: PACU (Discussed GA, agrees to proceed)
[2018-01-04] MEDS ORDERED: Acetaminophen IV 1,000 MG/100 ML INFUS..BTL ONE (13:22)
[2018-01-04] MEDS ORDERED: Famotidine 20 MG/2 ML VIAL ONE (13:22)
[2018-01-04] MEDS ORDERED: *HR* HYDROmorphone 2 MG TABLET PO PRN (15:00)
[2018-01-04] MEDS ORDERED: *HR* Promethazine 25 MG/ML VIAL IVP PRN (15:00)
[2018-01-04] MEDS ORDERED: *HR* OxyCODONE Immed Rel 5 MG TABLET PO PRN (15:00)
--- NOTE | 2018-01-04 15:13 | Orthopedic Operative Note ---
Date of procedure: 01/04/18 Pre-op diagnosis: Displaced midshaft right femoral shaft fracture Post-op diagnosis: same Procedure: Procedure: Right femur open reduction intramedullary nail fixation Estimated blood loss: 100 cc Hardware: Metal: Synthes TFN 11 mm diameter, 420 mm, 90 mm helical blade, 42 mm distal locking bolt Procedural Notes: Patient is quadriplegic with a flexion contracture of the right knee Operative procedure: The patient was brought to the operating room and placed on the operating room table. After general anesthesia was administered the well leg was place in the well leg martinez and the operative leg was placed in the fracture leg martinez. All pressure points were padded appropriately. The operative extremity was prepped and draped in the sterile surgical fashion patient received IV antibiotic prior to skin incision. A standard direct lateral approach was made over the entry point of the greater trochanter, the incision was made through the skin and subcutaneous tissue hemostasis was obtained with Bovie cautery. Using careful sharp dissection the fascia was identified and incised, flouroscopic assistance was used to identify the entry point. The guidepin was placed at the entry point using fluroscopic assistance, it was over reamed with the proximal reamer. The nail was placed through the entry hole, across the fracture site into the distal fragment the position was confirmed with fluroscopy. A guide pin was placed through the proximal locking guide from the lateral femur through the nail into the femoral head, it was over reamed with the reamer. The 90 mm helical blade was placed over the guide pin through the nail into the femoral head, locked in place with the proximal locking bolt. Distal locking bolt was placed under fluoroscopic assistance. The position of hardware and fracture reduction found to be acceptable with fluroscopic assistance. The wound was irrigated. Fascia was closed with a running #2 PDS suture. The deep tissue was irrigated and closed deep with #1 PDS suture superficially with 0 PDS suture and skin was closed with Dermabond. The patient was placed in a sterile dressing The patient was extubated and transferred to the recovery room in stable condition. Anesthesia: GETA Surgeon: Faustino Briggs Was there an phys assistant present: No Estimated blood loss (cc): 100 Condition: stable Disposition: PACU
--- NOTE | 2018-01-04 16:13 | Anesthesia Evaluation Post Op ---
Date of Encounter: 01/04/18 Time of Encounter: 16:15 - Vital Signs Vital Signs: Vital Signs/O2 Sat/Glucose, Most Current Temp Pulse Resp BP Pulse Ox 01/04/18 16:08 98.3 F 85 12 98/61 95 01/04/18 15:58 82 16 106/72 96 01/04/18 15:48 83 12 122/81 95 01/04/18 15:38 99 F 102 16 132/91 95 01/04/18 12:21 98.2 F 88 17 109/66 92 - Lungs Lungs: Clear Ascult./Percussion - Airway Airway: Non-obstructed - Cardiovascular Regular Rate - Mental Status Mental Status: Alert & Oriented, Answers Appropriately - Pain Pain Scale: 0 - Nausea Vomiting Nausea Vomiting: Not Present - Hydration Hydration: Ice chips - Discharge PostOp Status: Transfer Patient to floor
[2018-01-04] MEDS ORDERED: Naloxone 0.4 MG/ML INJ IVP PRN (16:17)
[2018-01-04] MEDS ORDERED: Ondansetron 4 MG/2 ML VIAL IVP PRN (16:17)
[2018-01-04 16:34] LABS: Hematocrit 38.8 % (37.5-50.1); Hemoglobin 12.7 g/dL (12.9-16.9)
--- NOTE | 2018-01-04 16:38 | Internal Med Progress Note ---
Date of Encounter: 01/04/18 Time of Encounter: 16:36 - Assessment and plan (1) Femur fracture, right Current Visit: Yes Status: Acute Assessment and plan: Patient had fracture of his right femur due to physical therapy -Status Post right femur open reduction and intramedullary nail fixation postop day #0 -Analgesia -Physical therapy Qualifiers: Encounter type: initial encounter Femur location: shaft Fracture type: closed Fracture morphology: other fracture Qualified Code(s): S72.391A - Other fracture of shaft of right femur, initial encounter for closed fracture (2) Quadriplegia following spinal cord injury Current Visit: Yes Status: Acute Assessment and plan: Patient is quadriplegic since 2003 after an incident -Continue physical therapy -Patient utilizes home health care - Time Spent With Patient Total time spent is greater than 50% in coordination of care (as documented) at patient's floor/unit and/or counseling patient: less than 15 minutes - Subjective Interval history: Patient seen and examined at bedside. Patient just returned from surgery. Patient states that he is comfortable with just minimal discomfort in his right hip. Patient denies any chest pain, shortness breath, abdominal pain, nausea, vomiting, diarrhea. Patient states that he understands that he is not some spirometer. - Constitutional Vitals: Temp Pulse Resp BP Pulse Ox 98.3 F 85 12 98/61 95 01/04/18 16:08 01/04/18 16:08 01/04/18 16:08 01/04/18 16:08 01/04/18 16:08 General appearance: Present: A&O X 3, answers questions appropriately Exam: Constitutional: No acute distress, Alert Psych: AAO x 3 HEENT: NCAT, EOMI Neck: supple, no JVD, old tracheostomy scar Cardio: regular rate and rhythm, +s1s2, no murmurs/rubs/ronchi, no lower extremity edema, no JVD Resp: clear to ascultation bilaterally, no wheezes/rales/ronchi Abd: soft, non tender/non distended, positive bowel sounds, no gaurding/reboud/ ridgitity Extremities: Right lower extremity incision is clean dry and intact with dressing in place. No obvious hematoma. Neuro: Patient with quadriplegia which is chronic Lymph: no cervical/supraclavicular adenopahty apprecitated Internal Medicine: Result - Labs CBC & Chem 7: 01/04/18 01:18 01/04/18 01:18 Labs: Short CBC 01/04/18 Range/Units 01:18 WBC 10.5 (4.3-11.1) K/mcL Hgb 13.0 (12.9-16.9) g/dL Hct 39.3 (37.5-50.1) % Plt Count 210 (140-400) K/mcL Neutrophils # 8.2 (1.6-8.9) K/mcL BMP 01/04/18 01:18 Sodium 137 Potassium 4.1 Chloride 103 Carbon Dioxide 28 BUN 11 Creatinine 0.68 L Glucose 135 H Calcium 9.3 - Impressions Impressions Femur X-Ray 01/04/18 14:32 IMPRESSION: Intraprocedural fluoroscopic spot images as above. See separate procedure report for more information. D/ : / 01/04/2018 15:29:17 Prabhakar Downey MD / brown Interpreting Provider: Prabhakar Downey MD Fluoroscopy 01/04/18 14:32 IMPRESSION: Intraprocedural fluoroscopic spot images as above. See separate procedure report for more information. D/ / 01/04/2018 15:29:17 Prabhakar Downey MD / brown Interpreting Provider: Prabhakar Downey MD Femur X-Ray 01/04/18 15:13 IMPRESSION: Intraprocedural fluoroscopic spot images as above. See separate procedure report for more information. D/ / 01/04/2018 15:29:17 Prabhakar Downey MD / brown Interpreting Provider: Prabhakar Downey MD Consult Discharge Plan - Plan Referrals: Zahida Mccall, ROBBIE [Primary Care Provider] -
[2018-01-04] MEDS ORDERED: Ketorolac 30 MG/ML VIAL IVP PRN (20:21)
[2018-01-05 01:41] LABS: Hematocrit 37.6 % (37.5-50.1); Hemoglobin 12.1 g/dL (12.9-16.9)
[2018-01-05] MEDS: *HR* OxyCODONE/APAP 7.5/325 TABLET PO PRN ×3 (04:20→13:16)
--- NOTE | 2018-01-05 08:05 | Orthopedics Progress Note ---
Date of Encounter: 01/05/18 Time of Encounter: 08:04 Subjective Interval history: Patient was seen this morning doing well without complaints. Afebrile vital signs stable. Operative extremity: Dressing clean dry and intact Complains of left knee pain we will get x-rays of left knee. Assessment and plan: Continue with postoperative care stable for discharge Objective Vital signs: Vital Signs Temp Pulse Resp BP Pulse Ox 01/05/18 07:04 98.0 F 87 14 114/71 97 01/05/18 03:29 97.8 F 87 16 118/81 95 01/05/18 00:04 98.0 F 97 16 118/79 96 01/04/18 21:53 95 01/04/18 18:50 99.0 F 84 14 116/63 95 01/04/18 17:50 97.0 F L 79 14 114/76 95 01/04/18 17:20 97.0 F L 78 16 93/63 96 01/04/18 16:50 96.9 F L 76 16 96/60 97 01/04/18 16:08 98.3 F 85 12 98/61 95 01/04/18 15:58 82 16 106/72 96 01/04/18 15:48 83 12 122/81 95 01/04/18 15:38 99 F 102 16 132/91 95 01/04/18 12:21 98.2 F 88 17 109/66 92 Intake and Output 01/04/18 01/05/18 01/05/18 23:59 07:59 15:59 Intake Total 950 / 950 550 / 550 Output Total 200 / 200 200 / 200 Balance 750 / 750 350 / 350 Intake: IV Fluids 100 / 100 100 / 100 Ancef 2,000 MG In 0.9 % Sodium 100 / 100 100 / 100 Chloride 100 ML @ 200 mls/hr IVPB Q8H [facility] Rx#:[id number] Oral 850 / 850 450 / 450 Output: Urine 200 / 200 Catheter 200 / 200 Other: Stool Size Smear Stool Consistency loose liquid Stool Color Brown # Bowel Movements 1 - Labs CBC & BMP: 01/05/18 01:17 01/04/18 01:18 Labs: Abnormal lab results Hgb 12.1 g/dL (12.9-16.9) L 01/05/18 01:17 Creatinine 0.68 mg/dL (0.70-1.30) L 01/04/18 01:18 Glucose 135 mg/dL (70-105) H 01/04/18 01:18 HDL Cholesterol 32 mg/dL (40-59) L 01/04/18 01:18 - VTE Documentation of Mechanical Device: Venous foot pump, device Consult Discharge Plan - Plan Referrals: Zahida Mccall, DERMATOLOGY NURSE PRACTITIONER [Primary Care Provider] -
[2018-01-05] MEDS: Baclofen 10 MG TABLET PO SCH ×2 (08:47→14:56)
[2018-01-05] MEDS: Gabapentin 300 MG CAPSULE PO SCH ×2 (08:47→14:56)
[2018-01-05] MEDS ORDERED: Ascorbic Acid 500 MG TABLET PO SCH (09:00)
[2018-01-05] MEDS ORDERED: Multivit/Ca/Min/Fe/FA 1 TAB TABLET PO SCH (09:00)
--- NOTE | 2018-01-05 09:55 | Discharge Summary ---
Orders not resulted at time of discharge: Pending orders 01/05/18 06:39 XR knee LT limited 1-2V [XR] Routine 01/06/18 04:00 Hemoglobin and Hematocrit [HEME] AM 0400 Date of Encounter: 01/05/18 Time of Encounter: 09:52 - Discharge Diagnosis (1) Femur fracture, right Priority: Primary (4) Status: Acute Qualifiers: Encounter type: initial encounter Femur location: shaft Fracture type: closed Fracture morphology: other fracture Qualified Code(s): S72.391A - Other fracture of shaft of right femur, initial encounter for closed fracture (2) Quadriplegia following spinal cord injury Priority: Secondary Status: Acute Hospital course: Mr. Brown is a 32 year old male who presented to [facility] after an injury sustained with physical therapy. The patient was found to have a fracture of his right femur. The patient was taken to the operating room and had an intramedullary nail nail fixation performed. Patient's hemoglobin stable after surgery. Follow up outpatient with orthopedics. We will also have physical therapy at home. Discharge discussed with: patient, nurse - Time Spent with Patient Total time spent providing and/or coordinating discharge services: Greater than 30 minutes - Discharge Medications Prescriptions: OxyCODONE/APAP 7.5/325 [Percocet 7.5/325 MG] 1 each PO Q8HR PRN 7 Days #14 tablet PRN Reason: Pain Home Medications: Ascorbic Acid [Vitamin C] 500 mg PO DAILY 12/20/17 [History] Baclofen [Lioresal] 25 mg PO TID 12/20/17 [History] Gabapentin [Neurontin] 600 mg PO TID 12/20/17 [History] Mv-Mn/FA/Lycopene/Lut/Hb#178 [Damien Multivit For Men Caplet] 1 tab PO DAILY 12/20 [History] OxyCODONE/APAP 7.5/325 [Percocet 7.5/325 MG] 1 each PO Q8HR PRN 7 Days #14 tablet 01/05/18 [Rx] Allergies/Adverse Reactions: 3 Allergy/AdvReac Type Severity Reaction Status Date / Time sulfamethoxazole AdvReac Rash Verified 12/20/17 21:28 [From Bactrim] trimethoprim [From Bactrim] AdvReac Rash Verified 12/20/17 21:28 Date of admission: 01/03/18 14:39 Primary care physician: Zahida Mccall CNP Consults: 01/04/18 16:17 Consult to Orthopedic Navigator [CONS] [CONS] Routine RT Post Op Consult [CONS] Routine - Constitutional Vitals: Temp Pulse Resp BP Pulse Ox 98.0 F 87 14 114/71 97 01/05/18 07:04 01/05/18 07:04 01/05/18 07:04 01/05/18 07:04 01/05/18 08:55 General appearance: Present: A&O X 3, answers questions appropriately Exam: Constitutional: No acute distress, Alert Psych: AAO x 3 HEENT: NCAT, EOMI Neck: supple, no JVD, old tracheostomy scar Cardio: regular rate and rhythm, +s1s2, no murmurs/rubs/ronchi, no lower extremity edema, no JVD Resp: clear to ascultation bilaterally, no wheezes/rales/ronchi Abd: soft, non tender/non distended, positive bowel sounds, no gaurding/reboud/ ridgitity Extremities: Right lower extremity incision is clean dry and intact with dressing in place. No obvious hematoma. Neuro: Patient with quadriplegia which is chronic - Patient Status Disposition: Home Health Service Condition: Good Functional capacity at discharge: bed bound Overall status at discharge: patient is progressing back to baseline - Discharge Instructions Follow Up With: Zahida Mccall CNP [Primary Care Provider] - Forms: ED Satisfaction Letter Additional Instructions: Discharge Instructions: Right hip intramedually nail fixation Please call [facility] ([phone]), your Primary Care Physician, or report to the Emergency Room if you have any of the following symptoms: Nausea, vomiting, fever greater that 101.5, swelling, chest pain, shortness of breath, increased pain/redness/drainage/odor for your incision site, numbness/ tingling, or any other concerning symptoms. ACTIVITY:Weight-bearing as tolerated for 8 weeks with hip dislocation precautions that physical therapy taught you. You may progress as tolerated under the guidance of your physical therapist. You do not need to sleep with a pillow between your legs. You can also seep on the operative side or on your stomach. MEDICATIONS: Upon discharge resume your home medications. Take all the medications as prescribed. Take a stool softener if taking narcotic pain medications. Stool softeners are only effective if you drink enough fluids. Drink 6-8 glass of water or fluids a day, unless this is not allowed for another health problem. Despite using stool softeners, if you haven't had a bowel movement in 3 days, please switch to a gentle laxative. Gentle laxatives are sold over the counter. You should have a bowel movement within 24 hours, if not call the office. You will be discharged from the hospital with a prescription for pain medication. You are encouraged to decrease the use of narcotic pain medication as tolerated. Should you require a refill, please call the office. [facility] prescribes narcotic pain medication for only 4-6 weeks after surgery. If you require pain medication beyond this time period, you may be referred to your Primary Care Physician or to the Pain Clinic for further evaluation. Plan ahead for refills on pain medication as many narcotics either need to be picked up at the office or mailed. It is best to call 48-72 hours in advance of needing a prescription refill so you don't run out of medication. To help control the post-operative pain, you may take NSAIDs (Aleve,Advil, Motrin, ibuprofen, naprosyn) or Tylenol as prescribed on the bottle in addition to the pain medication. ANTICOAGULATION (blood thinners): Continue your Aspirin, Lovenox or Coumadin as prescribed to help prevent a blood clot in the leg or in the lungs. As long as your incision remains dry and you tolerate the NSAIDs (Aleve, Advil, Motrin, Ibuprofen, Naprosyn), it is OK to use the NSAIDS while you are taking your anticoagulation medication. Should your incision start to drain, stop the NSAID and contact our office. Common symptoms of blood clot in the legs include: localized pain, swelling, calf tenderness, redness or discoloration of the skin. Blood clot in the lung symptoms include: shortness of breath, rapid pulse, sweating, and chest pain that worsens with deep breathing, coughing up blood, lightheadedness, feelings of anxiety. If you experience any of these symptoms notify your physician immediately, go to the emergency room, or if having trouble breathing, call 911. WOUND CARE: Leave the dressing on for 7 to 10days. You may change the dressing if it is saturated greater than 50%. Do not get the dressing wet at anytime. Wash your hands with antibacterial soap, rinse and dry prior to any wound care. If you have ashleigh the visiting nurse or rehab facility can remove the stapes 10-14 days after surgery and place steri-strips across the wound. Leave the steri-strips in place until they fall off on their own. You may let water from the shower run on top of the steri-strips. If you do not have a visiting nurse or rehab facility, you will need to return to the office at 10-14 days for the ashleigh to be removed. If you have itching or redness around the dressing call the office. FOLLOW-UP: Please follow up with your surgeon in the orthopedic clinic in 6 weeks from the day of surgery. If you have ashleigh that need to be removed, you will need to come back to the office in 10-14 days from the day of surgery. - Diet and Activity Activity: as per physical therapy Diet: advance to your usual diet - VTE Documentation of Mechanical Device: Venous foot pump, device
--- NOTE | 2018-01-05 10:10 | Physician Discharge Referral ---
Home Health/Hosp Referral Info Transfer to: Home Health (Will need physical therapy and nursing) Provider in Charge Post Discharge: PCP - Diagnosis (1) Femur fracture, right Priority: Primary Status: Acute (2) Quadriplegia following spinal cord injury Status: Acute - Respiratory Orders Smoking Cessation: Smoking cessation has been advised. For more information, call the [place] Tobacco Quit Line at 3-833-EWLZ-NOW. - Transfer Medications Prescriptions: OxyCODONE/APAP 7.5/325 [Percocet 7.5/325 MG] 1 each PO Q8HR PRN 7 Days #14 tablet PRN Reason: Pain Home Medications: Ascorbic Acid [Vitamin C] 500 mg PO DAILY 12/20/17 [History] Baclofen [Lioresal] 25 mg PO TID 12/20/17 [History] Gabapentin [Neurontin] 600 mg PO TID 12/20/17 [History] Mv-Mn/FA/Lycopene/Lut/Hb#178 [Damien Multivit For Men Caplet] 1 tab PO DAILY 12/20 [History] OxyCODONE/APAP 7.5/325 [Percocet 7.5/325 MG] 1 each PO Q8HR PRN 7 Days #14 tablet 01/05/18 [Rx] Allergies/Adverse Reactions: 3 Allergy/AdvReac Type Severity Reaction Status Date / Time sulfamethoxazole AdvReac Rash Verified 12/20/17 21:28 [From Bactrim] trimethoprim [From Bactrim] AdvReac Rash Verified 12/20/17 21:28 Certification: Further, I certify that my clinical findings support that this patient is homebound (i.e. absences from home require considerable and taxing effort and are for medical reasons or mandaeism services or infrequently or short duration when for other reasons) because: Homebound Reason: Patient requires assistance of a person or device to safely leave home, Post-surgery restriction and or conditions limit ability to leave home Attestation: My signature below is to certify that this patient is under my care and that I, or nurse practitioner, or a physician's assistant oceanographer working with me, has a face-to -face encounter with this patient.
[2018-01-05 15:25] VITALS: BP 102/68
--- NOTE | 2018-01-05 22:58 | Event Note ---
Date of Encounter: 01/05/18 Time of Encounter: 13:40 POD#1 Date of procedure: 01/04/18 Pre-op diagnosis: Displaced midshaft right femoral shaft fracture Post-op diagnosis: same Procedure: Right femur open reduction intramedullary nail fixation Patient seen at bedside. Alert and oriented x 3 Labwork and medications reviewed. H/H 12.1/37.6 Vital signs reviewed. Pain control: Adequate Participating in PT. All questions and concerns addressed. Educated on use of incentive spirometer, therapeutic exercise, and hydration. Patient educated on post-operative restrictions and care. Addressed: cautious transfers, use of chest harness to reduce risk of falls. Patient noted to have acute traumatic closed nondisplaced fibular head fracture - nonoperative - discussed encouraging padding and reducing further trauma to region. D/C plan: Home with Home health - patient already has arrangements prior to injury.
== END 2018-01-05 16:03 | disposition home health service (06) | DRG 480 ==
LOC: EMEROO 11:18 → SUATTDRO 14:39 → 3NENU 14:39
PROVIDERS: ADMIT Internal Medicine; ATTEND Internal Medicine

== ENCOUNTER 2020-10-31 11:25 | Observation (INO) ==
[2020-10-31] MEDS ORDERED: 0.9 % Sodium Chloride 1,000 ML IVC ONE ×2 (11:43→13:41)
[2020-10-31 12:28] LABS: BUN/Creatinine Ratio 15 (6-26); Blood Urea Nitrogen 14 mg/dL (6-20); Calcium 9.4 mg/dL (8.6-10.3); Carbon Dioxide 24 mEq/L (23-29); Chloride 98 mEq/L (98-107); Glucose 112 mg/dL (70-105); Osmolality,Calculated 277 (280-300); Potassium 3.9 mEq/L (3.5-5.1); Sodium 133 mEq/L (136-145); eGFR For African Americans > 60 (> 60); eGFR For Non-African Americans > 60 (> 60)
[2020-10-31 12:32] LABS: Basophils # 0.1 K/mcL (0.0-0.2); Basophils % 0.2 %; Eosinophils # 0.1 K/mcL (0.0-0.6); Eosinophils % 0.3 %; Hematocrit 43.2 % (37.5-50.1); Hemoglobin 14.2 g/dL (12.9-16.9); Immature Granulocytes % 0.5 % (0-4); Lymphocytes # 1.8 K/mcL (0.6-4.6); Lymphocytes % 7.7 %; Mean Corpuscular HGB Conc 32.9 g/dL (31.6-35.5); Mean Corpuscular Hemoglobin 28.6 pg (28.0-33.3); Mean Corpuscular Volume 86.9 fL (83.0-100.0); Monocytes # 1.5 K/mcL (0.0-1.3); Monocytes % 6.7 %; Neutrophils # 19.5 K/mcL (1.6-8.9); Platelet Count 211 K/mcL (140-400); Red Blood Count 4.97 M/mcL (4.19-5.50); Red Cell Distribution Width 14.2 % (11.5-14.5); Segmented Neutrophils % 84.6 %
[2020-10-31 13:38] LABS: Bilirubin,Urine Negative (Negative); Blood,Urine Large (Negative); Clarity,Urine Turbid (Clear); Color,Urine Dark-Brown (Yellow); Glucose,Urine (UA) Normal (Normal); Ketones,Urine 20 mg/dL (Negative); Leukocyte Esterase,Urine Moderate (Negative); Nitrite,Urine Negative (Negative); PH,Urine 6.5 pH Units (5.0-8.0); Protein,Urine >=600 mg/dL (Neg-Trace); Specific Gravity,Urine 1.022 (1.010-1.025); Urobilinogen,Urine Normal (Normal)
[2020-10-31] MEDS ORDERED: cefTRIAXone 1,000 MG in Water for inj. (sterile) 10 ML IVP ONE (13:41)
[2020-10-31] MEDS ORDERED: Isovue-370 500 ML BOTTLE IVP ONE (14:12)
[2020-10-31 14:28] LABS: Creatine Kinase 74 Units/L (30-223)
[2020-10-31] MEDS ORDERED: Acetaminophen 325 MG TABLET PO ONE (15:58)
[2020-10-31] MEDS ORDERED: Naloxone 0.4 MG/ML INJ IVP PRN (16:08)
[2020-10-31] MEDS: Ringers Solution, Lactated 1,000 ML IVC SCH (18:34)
[2020-10-31] MEDS: *HR* OxyCODONE/APAP 5/325 TABLET PO SCH (21:04)
[2020-10-31] MEDS: Baclofen 10 MG TABLET PO SCH (21:04)
[2020-10-31] MEDS: Gabapentin 400 MG CAPSULE PO SCH (21:04)
[2020-11-01] MEDS: Ringers Solution, Lactated 1,000 ML IVC SCH ×2 (02:41→10:35)
[2020-11-01 04:52] LABS: Basophils % 0.2 %; Eosinophils # 0.2 K/mcL (0.0-0.6); Eosinophils % 1.1 %; Hematocrit 36.8 % (37.5-50.1); Hemoglobin 12.1 g/dL (12.9-16.9); Immature Granulocytes % 0.3 % (0-4); Lymphocytes % 6.9 %; Mean Corpuscular HGB Conc 32.9 g/dL (31.6-35.5); Mean Corpuscular Hemoglobin 28.6 pg (28.0-33.3); Mean Platelet Volume 10.9 fL (9.4-12.4); Monocytes # 0.9 K/mcL (0.0-1.3); Monocytes % 5.8 %; Neutrophils # 12.9 K/mcL (1.6-8.9); Platelet Count 174 K/mcL (140-400); Red Blood Count 4.23 M/mcL (4.19-5.50); Red Cell Distribution Width 14.4 % (11.5-14.5); Segmented Neutrophils % 85.7 %
[2020-11-01 05:06] LABS: BUN/Creatinine Ratio 18 (6-26); Blood Urea Nitrogen 11 mg/dL (6-20); Calcium 8.8 mg/dL (8.6-10.3); Carbon Dioxide 26 mEq/L (23-29); Chloride 101 mEq/L (98-107); Glucose 102 mg/dL (70-105); Osmolality,Calculated 280 (280-300); Potassium 3.8 mEq/L (3.5-5.1); Sodium 135 mEq/L (136-145); eGFR For African Americans > 60 (> 60); eGFR For Non-African Americans > 60 (> 60)
[2020-11-01] MEDS ORDERED: Ondansetron ODT 4 MG TAB.RAPDIS SL PRN (05:42)
[2020-11-01] MEDS: *HR* Heparin 5,000 UNIT/ML VIAL SQ SCH ×2 (05:58→16:07)
[2020-11-01 08:12] LABS: Acinetobacter baumannii by PCR Not Detected (Not Detect); Enterobacter cloacae Cmplx PCR Not Detected (Not Detect); Enterococcus by PCR Not Detected (Not Detect); Escherichia coli by PCR Not Detected (Not Detect); Klebsiella oxytoca by PCR Not Detected (Not Detect); Proteus by PCR Not Detected (Not Detect); Staphylococcus aureus by PCR Not Detected (Not Detect); Staphylococcus by PCR Not Detected (Not Detect); Streptococcus agalactiae(B)PCR Not Detected (Not Detect); Streptococcus by PCR Not Detected (Not Detect); Streptococcus pneumoniae PCR Not Detected (Not Detect); Streptococcus pyogenes (A) PCR Not Detected (Not Detect)
[2020-11-01 08:13] LABS: Candida albicans by PCR Not Detected (Not Detect); Candida glabrata by PCR Not Detected (Not Detect); Candida krusei by PCR Not Detected (Not Detect); Candida parapsilosis by PCR Not Detected (Not Detect); Candida tropicalis by PCR Not Detected (Not Detect); Klebsiella pneumoniae by PCR DETECTED (Not Detect); Pseudomonas aeruginosa by PCR Not Detected (Not Detect); Serratia marcescens by PCR Not Detected (Not Detect)
[2020-11-01] MEDS: Multivit/Ca/Min/Fe/FA 1 TAB TABLET PO SCH (09:20)
[2020-11-01] MEDS: *HR* OxyCODONE/APAP 5/325 TABLET PO SCH ×2 (09:20→20:36)
[2020-11-01] MEDS: Gabapentin 400 MG CAPSULE PO SCH ×2 (09:20→20:37)
[2020-11-01] MEDS: Baclofen 10 MG TABLET PO SCH ×3 (09:21→20:37)
[2020-11-01] MEDS: cefTRIAXone 1,000 MG in Water for inj. (sterile) 10 ML IVP SCH (09:21)
[2020-11-01] MEDS ORDERED: Vancomycin 1,750 MG/517.5 ML IV.SOLN IVPB ONE (09:33)
[2020-11-01] MEDS ORDERED: Acetaminophen 325 MG TABLET PO PRN (10:54)
[2020-11-01] MEDS ORDERED: Gabapentin 400 MG CAPSULE PO SCH (12:00)
[2020-11-01] MEDS ORDERED: Vancomycin 1,500 MG/265 ML IV.SOLN IVPB SCH (22:00)
[2020-11-02 03:29] LABS: Basophils % 0.3 %; Eosinophils # 0.2 K/mcL (0.0-0.6); Eosinophils % 2.1 %; Hematocrit 35.5 % (37.5-50.1); Hemoglobin 11.1 g/dL (12.9-16.9); Immature Granulocytes % 0.6 % (0-4); Lymphocytes # 1.2 K/mcL (0.6-4.6); Lymphocytes % 17.3 %; Mean Corpuscular HGB Conc 31.3 g/dL (31.6-35.5); Mean Corpuscular Hemoglobin 27.8 pg (28.0-33.3); Mean Platelet Volume 10.8 fL (9.4-12.4); Monocytes # 0.7 K/mcL (0.0-1.3); Monocytes % 9.8 %; Platelet Count 162 K/mcL (140-400); Red Blood Count 3.99 M/mcL (4.19-5.50); Red Cell Distribution Width 14.3 % (11.5-14.5); Segmented Neutrophils % 69.9 %
[2020-11-02 03:30] LABS: White Blood Count 7.1 K/mcL (4.3-11.1)
[2020-11-02 03:40] LABS: BUN/Creatinine Ratio 17 (6-26); Blood Urea Nitrogen 9 mg/dL (6-20); Calcium 8.5 mg/dL (8.6-10.3); Carbon Dioxide 25 mEq/L (23-29); Chloride 104 mEq/L (98-107); Glucose 103 mg/dL (70-105); Magnesium 1.8 mg/dL (1.6-2.6); Osmolality,Calculated 279 (280-300); Phosphorous 2.4 mg/dL (2.7-4.5); Sodium 135 mEq/L (136-145); eGFR For African Americans > 60 (> 60); eGFR For Non-African Americans > 60 (> 60)
[2020-11-02] MEDS: Ringers Solution, Lactated 1,000 ML IVC SCH ×3 (05:12→08:44)
[2020-11-02] MEDS: *HR* Heparin 5,000 UNIT/ML VIAL SQ SCH ×2 (06:31→06:33)
[2020-11-02 07:17] VITALS: BP 155/99
[2020-11-02] MEDS: *HR* OxyCODONE/APAP 5/325 TABLET PO SCH (08:10)
[2020-11-02] MEDS: Multivit/Ca/Min/Fe/FA 1 TAB TABLET PO SCH (08:11)
[2020-11-02] MEDS: Baclofen 10 MG TABLET PO SCH (08:11)
[2020-11-02] MEDS: Gabapentin 400 MG CAPSULE PO SCH (08:11)
[2020-11-02] MEDS: cefTRIAXone 1,000 MG in Water for inj. (sterile) 10 ML IVP SCH (08:11)
[2020-11-02] MEDS ORDERED: Sennosides 8.6 MG TABLET PO SCH (16:25)
== END 2020-11-02 11:00 | disposition home or self-care (01) ==
LOC: 2ANU 11:25 → EMEROOARM 11:25 → 2ANU 17:47
PROVIDERS: ADMIT Internal Medicine; ATTEND Internal Medicine

== ENCOUNTER 2022-01-18 11:59 | Inpatient (IN) ==
[2022-01-18 14:19] LABS: Basophils % 0.3 %; Eosinophils # 0.4 K/mcL (0.0-0.6); Eosinophils % 3.3 %; Hemoglobin 11.9 g/dL (12.9-16.9); Immature Granulocytes % 0.2 % (0-4); Lymphocytes # 1.9 K/mcL (0.6-4.6); Lymphocytes % 18.3 %; Mean Corpuscular HGB Conc 32.2 g/dL (31.6-35.5); Mean Corpuscular Hemoglobin 27.6 pg (28.0-33.3); Mean Corpuscular Volume 85.8 fL (83.0-100.0); Mean Platelet Volume 10.3 fL (9.4-12.4); Monocytes # 0.7 K/mcL (0.0-1.3); Monocytes % 6.8 %; Neutrophils # 7.4 K/mcL (1.6-8.9); Platelet Count 343 K/mcL (140-400); Red Blood Count 4.31 M/mcL (4.19-5.50); Red Cell Distribution Width 14.3 % (11.5-14.5); Segmented Neutrophils % 71.1 %; White Blood Count 10.5 K/mcL (4.3-11.1)
[2022-01-18 14:20] LABS: Bacteria,Urine Few per hpf (None-Few); Bilirubin,Urine Negative (Negative); Blood,Urine Trace (Negative); Clarity,Urine Turbid (Clear); Color,Urine Yellow (Yellow); Glucose,Urine (UA) Normal (Normal); Ketones,Urine Negative (Negative); Leukocyte Esterase,Urine Large (Negative); Mucus,Urine Few per lpf (None-Few); Nitrite,Urine Positive (Negative); PH,Urine 8.5 pH Units (5.0-8.0); Protein,Urine 100 mg/dL (Neg-Trace); RBC,Urine 15-30 per hpf (0-3); Specific Gravity,Urine 1.028 (1.010-1.025); Triple Phosphate Crystal,Urine Present per hpf; Urobilinogen,Urine Normal (Normal)
[2022-01-18 14:42] LABS: Alanine Aminotransferase 16 Units/L (7-52); Albumin 3.8 g/dL (3.5-5.7); Albumin/Globulin Ratio 0.9 (1.1-2.2); Alkaline Phosphatase 57 Units/L (34-104); Aspartate Amino Transferase 12 Units/L (13-39); BUN/Creatinine Ratio 28 (6-26); Bilirubin,Total 0.3 mg/dL (0.3-1.0); Blood Urea Nitrogen 14 mg/dL (6-20); Calcium 9.2 mg/dL (8.6-10.3); Carbon Dioxide 29 mEq/L (23-29); Chloride 102 mEq/L (98-107); Globulin 4.3 g/dL (2.4-3.5); Glucose 116 mg/dL (70-105); Osmolality,Calculated 287 (280-300); Potassium 3.8 mEq/L (3.5-5.1); Sodium 138 mEq/L (136-145); Total Protein 8.1 g/dL (6.4-8.9); eGFR For African Americans > 60 (> 60); eGFR For Non-African Americans > 60 (> 60)
[2022-01-18] MEDS ORDERED: Iopamidol - 370 500 ML MLS IVP ONE ×2 (15:31→15:32)
[2022-01-18 19:07] LABS: C-Reactive Protein 40 mg/L (Less than 10)
[2022-01-18] MEDS ORDERED: Piperacillin/Tazobactam 3.375 GM in 0.9 % Sodium Chloride Mini Bag 100 ML IVPB ONE (19:21)
[2022-01-18] MEDS ORDERED: Vancomycin 1,500 MG/265 ML IV.SOLN IVPB ONE (20:00)
[2022-01-18] MEDS ORDERED: Naloxone 0.4 MG/ML INJ IVP PRN (20:11)
[2022-01-18] MEDS ORDERED: Acetaminophen 325 MG TABLET PO PRN (20:11)
[2022-01-18] MEDS ORDERED: Ondansetron ODT 4 MG TAB.RAPDIS SL PRN (20:11)
[2022-01-18] MEDS ORDERED: D5% in Water 1,000 ML IVC PRN (21:12)
[2022-01-18] MEDS ORDERED: Dextrose Gel 15 GM/37.5 ML TUBE PO PRN ×2 (21:12)
[2022-01-18] MEDS ORDERED: *HR* Dextrose 50 % in Water (Syg) 50 ML SYRINGE IVP PRN (21:12)
[2022-01-18] MEDS ORDERED: *HR* HYDROcodone/Acet 5/325 mg TABLET PO PRN (23:51)
[2022-01-19] MEDS: Baclofen 10 MG TABLET PO SCH ×4 (00:34→20:29)
[2022-01-19] MEDS: Gabapentin 400 MG CAPSULE PO SCH ×4 (00:34→20:29)
[2022-01-19] MEDS: Clindamycin 600 MG/50 ML 600 MG/50 ML IV.SOLN IVPB SCH ×4 (00:36→22:07)
[2022-01-19] MEDS: 0.9 % Sodium Chloride 1,000 ML IVC SCH ×3 (00:36→23:31)
[2022-01-19] MEDS ORDERED: *HR* OxyCODONE/APAP 5/325 TABLET PO PRN (01:12)
[2022-01-19] MEDS ORDERED: *HR* OxyCODONE Immed Rel 5 MG TABLET PO PRN (01:13)
[2022-01-19 05:54] LABS: Basophils % 0.3 %; Eosinophils # 0.5 K/mcL (0.0-0.6); Eosinophils % 4.5 %; Hemoglobin 12.1 g/dL (12.9-16.9); Immature Granulocytes % 0.3 % (0-4); Lymphocytes # 2.5 K/mcL (0.6-4.6); Lymphocytes % 21.5 %; Mean Corpuscular HGB Conc 31.8 g/dL (31.6-35.5); Mean Corpuscular Hemoglobin 27.4 pg (28.0-33.3); Mean Corpuscular Volume 86.2 fL (83.0-100.0); Mean Platelet Volume 10.4 fL (9.4-12.4); Monocytes # 1.1 K/mcL (0.0-1.3); Monocytes % 9.3 %; Neutrophils # 7.4 K/mcL (1.6-8.9); Platelet Count 319 K/mcL (140-400); Red Blood Count 4.41 M/mcL (4.19-5.50); Red Cell Distribution Width 14.3 % (11.5-14.5); Segmented Neutrophils % 64.1 %; White Blood Count 11.6 K/mcL (4.3-11.1)
[2022-01-19] MEDS: Piperacillin/Tazobactam 3.375 GM in 0.9 % Sodium Chloride Mini Bag 100 ML IVPB SCH ×3 (05:55→22:05)
[2022-01-19 06:05] LABS: INR 1.1; Prothrombin Time 12.7 Seconds (9.4-12.1)
[2022-01-19 06:07] LABS: Activated Partial Thrombo Time 33.5 Seconds (26.0-36.0)
[2022-01-19 06:11] LABS: BUN/Creatinine Ratio 28 (6-26); Blood Urea Nitrogen 13 mg/dL (6-20); Calcium 9.1 mg/dL (8.6-10.3); Carbon Dioxide 27 mEq/L (23-29); Chloride 102 mEq/L (98-107); Glucose 89 mg/dL (70-105); Magnesium 2.1 mg/dL (1.6-2.6); Osmolality,Calculated 284 (280-300); Phosphorous 4.1 mg/dL (2.7-4.5); Potassium 3.9 mEq/L (3.5-5.1); Sodium 137 mEq/L (136-145); eGFR For African Americans > 60 (> 60); eGFR For Non-African Americans > 60 (> 60)
[2022-01-19] MEDS ORDERED: Vancomycin 1,500 MG/265 ML IV.SOLN IVPB SCH (08:00)
[2022-01-20 02:46] LABS: Basophils % 0.4 %; Eosinophils # 0.5 K/mcL (0.0-0.6); Eosinophils % 5.5 %; Hematocrit 34.4 % (37.5-50.1); Hemoglobin 10.8 g/dL (12.9-16.9); Immature Granulocytes % 0.2 % (0-4); Lymphocytes # 2.2 K/mcL (0.6-4.6); Lymphocytes % 26.8 %; Mean Corpuscular HGB Conc 31.4 g/dL (31.6-35.5); Mean Corpuscular Hemoglobin 27.1 pg (28.0-33.3); Mean Corpuscular Volume 86.2 fL (83.0-100.0); Monocytes # 0.7 K/mcL (0.0-1.3); Monocytes % 8.5 %; Neutrophils # 4.9 K/mcL (1.6-8.9); Platelet Count 308 K/mcL (140-400); Red Blood Count 3.99 M/mcL (4.19-5.50); Red Cell Distribution Width 14.3 % (11.5-14.5); Segmented Neutrophils % 58.6 %; White Blood Count 8.4 K/mcL (4.3-11.1)
[2022-01-20 03:13] LABS: BUN/Creatinine Ratio 20 (6-26); Blood Urea Nitrogen 10 mg/dL (6-20); Calcium 8.5 mg/dL (8.6-10.3); Carbon Dioxide 28 mEq/L (23-29); Chloride 106 mEq/L (98-107); Glucose 84 mg/dL (70-105); Osmolality,Calculated 288 (280-300); Potassium 3.9 mEq/L (3.5-5.1); Sodium 140 mEq/L (136-145)
[2022-01-20] MEDS: Piperacillin/Tazobactam 3.375 GM in 0.9 % Sodium Chloride Mini Bag 100 ML IVPB SCH ×2 (05:33→11:28)
[2022-01-20] MEDS: Clindamycin 600 MG/50 ML 600 MG/50 ML IV.SOLN IVPB SCH (05:34)
[2022-01-20] MEDS: Gabapentin 400 MG CAPSULE PO SCH ×2 (08:08→14:31)
[2022-01-20] MEDS: Baclofen 10 MG TABLET PO SCH ×2 (08:08→14:31)
[2022-01-20] MEDS: 0.9 % Sodium Chloride 1,000 ML IVC SCH (08:08)
[2022-01-20] MEDS ORDERED: Cefepime HCl 2,000 MG in 0.9 % Sodium Chloride 10 ML IVP SCH (14:00)
[2022-01-20 19:46] VITALS: BP 97/61; PULSE 89; TEMP 97.9; O2SAT 95
[2022-01-20] MEDS ORDERED: Vancomycin 1,250 MG/262.5 ML IV.SOLN IVPB SCH (20:00)
[2022-01-20] MEDS ORDERED: Lactobacillus 1 EACH CAP.SPRINK PO SCH (21:00)
== END 2022-01-20 20:30 | disposition short-term general hospital (02) | DRG 539 ==
LOC: EMEROOARM 11:59 → 4WAOSI 11:59 → SUATTDRO 19:57 → 4WAOSI 22:15
PROVIDERS: ADMIT Internal Medicine; ATTEND Pharmacist